=== PATIENT | female | born 1970 | race Native Hawaiian/Other Pacific Islander ===

== ENCOUNTER 2018-02-22 14:47 | Emergency (ER) | payer OTHER ==
[~2018-02-22] VITALS: Ht 170.2 cm; Wt 104.3 kg
[2018-02-22 15:16] LABS: PLATELET COUNT 303 K/uL (152-353)
[2018-02-22 15:25] LABS: POTASSIUM 3.6 mmol/L (3.6-5.2)
[2018-02-22 16:00] VITALS: BP 140/70; TEMP 98.5
== END 2018-02-22 16:03 | disposition home or self-care (01) ==
LOC: ED 14:47
PROVIDERS: Emergency Medicine
DX: M79.605 Pain in left leg (principal); M79.89 Other specified soft tissue disorders
CPT/HCPCS: 36415; 80053; 85027; 85379; 99283

== ENCOUNTER 2020-10-13 00:25 | Emergency (ER) | payer OTHER ==
[~2020-10-13] VITALS: Ht 170.2 cm; Wt 97.1 kg
[2020-10-13 01:00] LABS: PLATELET COUNT 294 K/uL (152-353)
[2020-10-13 01:09] LABS: POTASSIUM 3.1 mmol/L (3.6-5.2)
[2020-10-13 01:18] LABS: PARTIAL THROMBOPLASTIN TIME 25.4 SECONDS (24.5-33.6)
[2020-10-13 03:00] VITALS: BP 140/75; TEMP 97.8
== END 2020-10-13 03:00 | disposition short-term general hospital (02) ==
LOC: ED 00:28
PROVIDERS: Family Medicine
DX: I21.4 Non-ST elevation (NSTEMI) myocardial infarction (principal); F17.210 Nicotine dependence, cigarettes, uncomplicated
CPT/HCPCS: 80053; 82550; 82553; 83880; 84484; 85027; 85610; 85730; 93005; 96360; 96365; 96372; 96375; 96376; 99285; J1650; J2270; J3490

== ENCOUNTER 2020-12-13 13:47 | Outpatient (CLI) | payer OTHER | END 2020-12-13 22:08 | disposition home or self-care (01) | LOC: MRI 13:47 | PROVIDERS: ATTEND Physician Assistant | DX: M54.16 Radiculopathy, lumbar region (principal) ==

== ENCOUNTER 2021-02-10 21:30 | Emergency (ER) | payer OTHER ==
[~2021-02-10] VITALS: Ht 170.2 cm; Wt 100.2 kg
[2021-02-10] MEDS ORDERED: LIPITOR80 MG PO (21:58)
[2021-02-10] MEDS ORDERED: TIZANIDINE HYDRO4 MG PO (22:00)
[2021-02-10] MEDS ORDERED: ASPIR-8181 MG PO (22:02)
[2021-02-10] MEDS ORDERED: COZAAR25 MG PO (22:02)
[2021-02-10] MEDS ORDERED: XANAX XR1 MG PO (22:04)
[2021-02-10] MEDS ORDERED: BRILINTA90 MG PO (22:05)
[2021-02-10 22:13] LABS: PLATELET COUNT 245 K/uL (152-353)
[2021-02-10 22:20] LABS: POTASSIUM 3.7 mmol/L (3.6-5.2); SODIUM 140 mmol/L (136-145)
[2021-02-10 22:31] LABS: PARTIAL THROMBOPLASTIN TIME 25.3 SECONDS (24.5-33.6)
[2021-02-11 00:14] VITALS: BP 118/65; TEMP 98.3
== END 2021-02-11 00:16 | disposition home or self-care (01) ==
LOC: ED 21:35
PROVIDERS: Family Medicine
DX: R00.2 Palpitations (principal); F41.8 Other specified anxiety disorders; Z98.890 Other specified postprocedural states
CPT/HCPCS: 80053; 81000; 83880; 84484; 85027; 85379; 85610; 85730; 93005; 99284

== ENCOUNTER 2021-06-02 08:57 | Outpatient (CLI) | payer OTHER ==
[~2021-06-02 08:57] MED LIST: ASPIR-8181 MG PO; BRILINTA90 MG PO; COZAAR25 MG PO; LIPITOR80 MG PO; TIZANIDINE HYDRO4 MG PO; XANAX XR1 MG PO
== END 2021-06-02 20:48 | disposition home or self-care (01) ==
LOC: US 08:57
PROVIDERS: ATTEND Nurse Practitioner Family
DX: R74.8 Abnormal levels of other serum enzymes (principal)

== ENCOUNTER 2021-11-30 18:12 | Emergency (ER) | payer OTHER ==
[~2021-11-30] VITALS: Ht 170.2 cm; Wt 100.2 kg
[2021-11-30 20:15] VITALS: BP 133/70; TEMP 98.1
== END 2021-11-30 20:15 | disposition home or self-care (01) ==
LOC: ED 18:12
DX: S82.65XA Nondisplaced fracture of lateral malleolus of left fibula, initial encounter for closed fracture (principal); W17.89XA Other fall from one level to another, initial encounter; Y93.55 Activity, bike riding; Y92.89 Other specified places as the place of occurrence of the external cause
CPT/HCPCS: 96372; 99283; J1885

== ENCOUNTER 2022-05-30 08:42 | Outpatient (CLI) | payer OTHER | END 2022-05-30 19:09 | disposition home or self-care (01) | LOC: MAMMO 08:42 | PROVIDERS: ATTEND Nurse Practitioner Family | DX: Z12.31 Encounter for screening mammogram for malignant neoplasm of breast (principal); Z13.820 Encounter for screening for osteoporosis ==